=== PATIENT | male | born 1975 | race Caucasian/White ===

== ENCOUNTER → 2018-02-06 | Outpatient (CLI) | payer SELFPAY ==
--- NOTE | 2018-02-06 13:31 | CT ---
CORONARY CALCIUM SCORE CLINICAL INDICATION: Screening. COMPARISON: None PROCEDURE: Gated images of the coronary arteries. Coronary artery calcium scoring was performed. FINDINGS: Coronary calcium scoring - 1 LM: 0 LAD: 0 LCX: 1 RCA: 0 Severe fatty infiltration of the low. Focal ground-glass nodularity within the right upper lobe IMPRESSION: 1. Calcium score of 1. This places the patient at approximately the 50th-75th percentile for Minimal identifiable plaque. Less than 10% risk of coronary artery disease. of equivalent age. 2. Ground-glass nodularity in the right upper lobe. Correlate with acute infection. 2. Severe hepatic steatosis. Reported By:
== END ==
LOC: RAD 10:42
PROVIDERS: ATTEND Family Medicine
DX: Z13.6 Encounter for screening for cardiovascular disorders (principal)